=== PATIENT | male | born 1970 | race Hispanic/Latino ===

== ENCOUNTER 2017-09-12 04:05 | Emergency (ER) | payer OTHER, BC ==
[2017-09-12 04:15] VITALS: RESP 20; O2SAT 98
--- NOTE | 2017-09-12 05:02 | C.PDOC ---
History Of Present Illness 47 year old male presents to the ED c/o pain and swelling to his right hand. Patient states that while at work he suffered a crushing injury to his right hand. Patient denies weakness, numbness, decreased sensation. Time Seen by Provider: 09/12/17 04:37 Chief Complaint (Nursing): Finger,Hand,&Wrist History Per: Patient History/Exam Limitations: no limitations Onset/Duration Of Symptoms: Hrs Current Symptoms Are (Timing): Still Present Quality: "Pain" Exacerbating Factor(s): Movement Recent travel outside of the [facility]: No Additional History Per: Patient Past Medical History Reviewed: Historical Data, Nursing Documentation, Vital Signs Vital Signs: Last Vital Signs Temp 98.5 F 09/12/17 04:10 Pulse 78 09/12/17 04:10 Resp 20 09/12/17 04:10 BP 134/97 H 09/12/17 04:10 Pulse Ox 98 09/12/17 05:03 - Medical History PMH: No Chronic Diseases Surgical History: No Surg Hx Family History: States: Unknown Family Hx - Social History Hx Alcohol Use: No Hx Substance Use: No Review Of Systems Constitutional: Negative for: Fever, Chills Cardiovascular: Negative for: Chest Pain, Palpitations Respiratory: Negative for: Shortness of Breath Gastrointestinal: Negative for: Nausea, Vomiting Musculoskeletal: Positive for: Hand Pain Skin: Positive for: Bruising Neurological: Negative for: Weakness, Numbness Physical Exam - Physical Exam Appears: Non-toxic, No Acute Distress Skin: Normal Color, Warm, Dry Head: Atraumatic, Normacephalic Eye(s): bilateral: Normal Inspection Oral Mucosa: Moist Extremity: Normal ROM (decreased right 5th finger , all other fingers normal ROM ), Tenderness (right 3rd, 4th, and 5th MCP), Capillary Refill (< 2 seconds), Swelling (minimal to Right 4th, and 5th MCP with ecchymosis and erythema) Pulses: Left Radial: Normal, Right Radial: Normal Neurological/Psych: Oriented x3, Normal Speech, Normal Motor, Normal Sensation Gait: Steady ED Course And Treatment O2 Sat by Pulse Oximetry: 98 (ON RA) Pulse Ox Interpretation: Normal - Other Rad Hand XR X-Ray: Interpreted by Me, Viewed By Me Interpretation: No fx or dislocation Progress Note: Plan: - Motrin 600 mg PO. - Right hand X-Ray. Pt placed in a aluminium finger splint to right 5th finger placed by BUCK Elizondo and need PMD follow up Disposition Counseled Patient/Family Regarding: Studies Performed, Diagnosis, Need For Followup, Rx Given - Disposition Referrals: [facility] at [facility] [Outside] Disposition: HOME/ ROUTINE Disposition Time: 05:29 Condition: STABLE Additional Instructions: Apply ICE to area Take motrin for pain Keep finger splint for support Follow up with PMD Return to ER if worse Prescriptions: Ibuprofen [Motrin] 600 mg PO Q6H #20 tab Instructions: Contusion (DC) Forms: [employer] ([place]), Work Excuse - Clinical Impression Clinical Impression: Contusion of right hand - 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 - Scribe Statement The provider has reviewed the documentation as recorded by the Scribe Reza Medrano All medical record entries made by the Scribe were at my direction and personally dictated by me. I have reviewed the chart and agree that the record accurately reflects my personal performance of the history, physical exam, medical decision making, and the department course for this patient. I have also personally directed, reviewed, and agree with the discharge instructions and disposition.
[2017-09-12 05:52] VITALS: BP 151/86; PULSE 64; TEMP 98.4
--- NOTE | 2017-09-15 09:52 | RAD ---
PROCEDURE: Right Hand Radiographs. The the the the the the the the HISTORY: trauma, pain and swelling COMPARISON: None. FINDINGS: BONES: No evidence of acute displaced fracture nor dislocation. The osseous structures appear intact. . JOINTS: Joint spaces preserved. No significant osteoarthritic changes. SOFT TISSUES: Vascular calcifications are present OTHER FINDINGS: None. IMPRESSION: No evidence acute displaced fracture nor dislocation. . If symptoms persist or occult fracture suspected clinically consider repeat radiographs in 5-10 days as most fractures should become radiographically evident in this timeframe.
== END 2017-09-12 05:56 | disposition home or self-care (01) ==
LOC: C.ER 04:05
DX: S60.221A Contusion of right hand, initial encounter (principal); W23.0XXA Caught, crushed, jammed, or pinched between moving objects, initial encounter; Y92.89 Other specified places as the place of occurrence of the external cause; Y99.0 Civilian activity done for income or pay

== ENCOUNTER 2018-05-23 23:57 | Emergency (ER) | payer OTHER, BC ==
[2018-05-24 00:31] VITALS: BP 187/97; PULSE 78; RESP 20; TEMP 98.3; O2SAT 100
--- NOTE | 2018-05-24 01:01 | C.PDOC ---
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 Denies head injury or other injuries. Time Seen by Provider: 05/24/18 00:11 Chief Complaint (Nursing): Upper Extremity Problem/Injury History Per: Patient History/Exam Limitations: no limitations Onset/Duration Of Symptoms: Hrs Current Symptoms Are (Timing): Still Present Recent travel outside of the [place]: No Past Medical History Reviewed: Historical Data, Nursing Documentation, Vital Signs Vital Signs: Last Vital Signs Temp 98.3 F 05/24/18 00:17 Pulse 78 05/24/18 00:17 Resp 20 05/24/18 00:17 BP 187/97 H 05/24/18 00:17 Pulse Ox 100 05/24/18 00:17 - Medical History PMH: HTN (not on meds) Family History: States: Unknown Family Hx - Social History Hx Alcohol Use: No Hx Substance Use: No Review Of Systems Musculoskeletal: Positive for: Hand Pain (Right) Skin: Negative for: Bruising Neurological: Negative for: Weakness, Numbness Physical Exam - Physical Exam Appears: Well, Non-toxic Skin: Normal Color, Warm, Dry Head: Atraumatic, Normacephalic Eye(s): bilateral: Normal Inspection Extremity: Capillary Refill (<2 seconds), Other (Mild tenderness with palpation of ulnar aspect of right wrist, full ROM of right wrist. No swelling, erythema, or deformity. No snuffbox tenderness.) Pulses: Left Radial: Normal, Right Radial: Normal Neurological/Psych: Oriented x3, Normal Speech, Normal Cranial Nerves (Grossly intact), Normal Motor, Normal Sensation Gait: Steady ED Course And Treatment O2 Sat by Pulse Oximetry: 100 (Room air) Pulse Ox Interpretation: Normal - Other Rad Right hand x-ray X-Ray: Interpreted by Me, Viewed By Me Interpretation: No acute fracture or dislocation Right wrist x-ray X-Ray: Interpreted by Me, Viewed By Me Interpretation: No acute fracture or dislocation. Medical Decision Making Medical Decision Making: x-rays were negative, patient placed in wrist splint and dc to follow up with primary. 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 - Scribe Statement The provider has reviewed the documentation as recorded by the Scribe Jimmie Portillo All medical record entries made by the Geronimoibkirill were at my direction and personally dictated by me. I have reviewed the chart and agree that the record accurately reflects my personal performance of the history, physical exam, medical decision making, and the department course for this patient. I have also personally directed, reviewed, and agree with the discharge instructions and disposition.
--- NOTE | 2018-05-24 11:33 | RAD ---
PROCEDURE: Right Wrist Radiographs. HISTORY: injury COMPARISON: None available. FINDINGS: BONES: No acute displaced fracture. JOINTS: No dislocation. SOFT TISSUES: Dense vascular calcifications. No evidence of radiopaque foreign body OTHER FINDINGS: None. IMPRESSION: No acute displaced fracture, dislocation, or significant joint effusion identified. If symptoms persist, or if there is continued clinical concern, x-ray follow-up in 7-10 days should be considered.
--- NOTE | 2018-05-24 11:34 | RAD ---
PROCEDURE: Right Hand Radiographs. HISTORY: injury COMPARISON: Right hand radiographs performed 09/12/17 FINDINGS: BONES: No acute displaced fracture. JOINTS: No dislocation. SOFT TISSUES: Dense vascular calcifications. No evidence of radiopaque foreign body. OTHER FINDINGS: None. IMPRESSION: No acute displaced fracture, dislocation, or significant joint effusion identified. If symptoms persist, or if there is continued clinical concern, x-ray follow-up in 7-10 days should be considered.
== END 2018-05-24 01:04 | disposition home or self-care (01) ==
LOC: C.ER 23:57
DX: S63.501A Unspecified sprain of right wrist, initial encounter (principal); S60.221A Contusion of right hand, initial encounter; V89.9XXA Person injured in unspecified vehicle accident, initial encounter; Y92.89 Other specified places as the place of occurrence of the external cause; Y99.0 Civilian activity done for income or pay